=== PATIENT | female | born 1950 | race Caucasian/White ===

== ENCOUNTER 2024-02-29 10:40 | Outpatient (CLI) | payer MEDICARE, OTHER | END 2024-02-29 10:41 | disposition home or self-care (01) | LOC: CSHMAMMO 10:40 | PROVIDERS: ATTEND Family Medicine Sports Medicine | DX: M25.511 Pain in right shoulder (principal); M81.0 Age-related osteoporosis without current pathological fracture | CPT/HCPCS: 77080 ==